=== PATIENT | female | born 1965 | race African-American/Black ===

== ENCOUNTER 2020-05-09 08:07 | Emergency (ER) | payer OTHER ==
[~2020-05-09] VITALS: Ht 162.6 cm; Wt 54.0 kg
[2020-05-09] MEDS ORDERED: CEFTRIAXONE SODIUM 1 G/VIAL IM SCH (09:30)
[2020-05-09] MEDS ORDERED: DEXAMETHASONE 4MG TABLET PO SCH (09:30)
[2020-05-09] MEDS ORDERED: LIDOCAINE HCL 1% 20ML VIAL (Pyxis) INJ INFIL SCH (09:30)
[2020-05-09 09:54] VITALS: BP 142/97
== END 2020-05-09 09:55 | disposition home or self-care (01) ==
LOC: ER 08:07
DX: R21 Rash and other nonspecific skin eruption (principal); Z91.013 Allergy to seafood
CPT/HCPCS: 96372; 99283; J0696; J3490; J8540

== ENCOUNTER 2020-08-09 18:49 | Emergency (ER) | payer OTHER ==
[~2020-08-09] VITALS: Ht 162.6 cm; Wt 55.0 kg
[2020-08-09] MEDS ORDERED: ACETAMINOPHEN 325MG TABLET PO ONE (20:00)
[2020-08-09] MEDS ORDERED: SODIUM CHLORIDE 0.9% 1,000 ML IV ONE (20:00)
[2020-08-09] MEDS ORDERED: IBUPROFEN 600MG TABLET PO ONE (21:45)
[2020-08-09] MEDS ORDERED: LEVOFLOXACIN 250MG TABLET PO ONE (21:45)
[2020-08-09 21:55] LABS: BASOPHILS % 0.5 % (0.0-2.0); EOSINOPHILS % 0.2 % (0.0-5.0); HEMATOCRIT. 41.9 % (36.0-48.0); HEMOGLOBIN. 14.8 g/dL (12.0-16.0); MEAN CORPUSCULAR HEMOGLOBIN 34.6 pg (28.0-32.0); MEAN CORPUSCULAR VOLUME 97.9 fL (81.0-99.0); MEAN PLATELET VOLUME 7.6 fl (7.4-10.4); NEUTROPHILS % 77.3 % (40.0-76.0); PLATELET 245 x1000/uL (130-400); RED BLOOD CELL COUNT 4.27 mill/uL (4.2-5.4)
[2020-08-09 22:03] LABS: CLARITY URINE CLEAR (CLEAR); COLOR URINE DARK YELLOW (YELLOW); KETONES URINE TRACE (NEGATIVE); LEUKOCYTE ESTERASE URINE TRACE (NEGATIVE); NITRITE URINE NEGATIVE (NEGATIVE); OCCULT BLOOD URINE NEGATIVE (NEGATIVE); PROTEIN URINE 1+ (NEGATIVE); SPECIFIC GRAVITY URINE 1.031 (1.005-1.030)
[2020-08-09 22:04] LABS: CHLORIDE 106 mEq/L (98-107)
[2020-08-09 22:37] VITALS: BP 107/74
== END 2020-08-09 22:41 | disposition home or self-care (01) ==
LOC: ER 18:49
DX: Z03.818 Encounter for observation for suspected exposure to other biological agents ruled out (principal); R05 Cough; R50.9 Fever, unspecified; R00.0 Tachycardia, unspecified; R03.0 Elevated blood-pressure reading, without diagnosis of hypertension; F17.210 Nicotine dependence, cigarettes, uncomplicated; F12.90 Cannabis use, unspecified, uncomplicated
CPT/HCPCS: 36415; 71045; 80053; 81003; 83605; 85025; 87086; 87635; 93005; 96360; 99285; C9803; J7030

== ENCOUNTER 2020-08-15 09:17 | Emergency (ER) | payer OTHER ==
[~2020-08-15] VITALS: Ht 170.2 cm; Wt 60.0 kg
[2020-08-15 11:03] VITALS: BP 137/91
== END 2020-08-15 11:04 | disposition home or self-care (01) ==
LOC: ER 09:17
DX: R05 Cough (principal); Z20.828 Contact with and (suspected) exposure to other viral communicable diseases; R50.9 Fever, unspecified; R06.02 Shortness of breath; Z91.013 Allergy to seafood; Z98.890 Other specified postprocedural states
CPT/HCPCS: 99283; C9803; U0003

== ENCOUNTER 2020-08-23 09:24 | Emergency (ER) | payer OTHER ==
[~2020-08-23] VITALS: Ht 162.6 cm; Wt 55.0 kg
[2020-08-23] MEDS ORDERED: IBUPROFEN 600MG TABLET PO ONE (10:00)
[2020-08-23 10:27] VITALS: BP 131/93
== END 2020-08-23 11:05 | disposition home or self-care (01) ==
LOC: ER 09:24
DX: M25.562 Pain in left knee (principal)
CPT/HCPCS: 73562; 99283

== ENCOUNTER 2021-07-26 15:01 | Emergency (ER) | payer OTHER ==
[~2021-07-26] VITALS: Ht 172.7 cm; Wt 60.0 kg
[2021-07-26] MEDS ORDERED: ACETAMINOPHEN 325MG TABLET PO ONE (17:45)
[2021-07-26 19:24] VITALS: BP 107/75
== END 2021-07-26 19:54 | disposition home or self-care (01) ==
LOC: ER 15:01
DX: R51.9 Headache, unspecified (principal); H53.8 Other visual disturbances; Z86.79 Personal history of other diseases of the circulatory system
CPT/HCPCS: 99284